=== PATIENT | female | born 1975 | race Caucasian/White ===

== ENCOUNTER 2024-06-23 04:28 | Inpatient (IN) | payer MEDICARE, MEDICAID ==
[~2024-06-23] VITALS: Ht 170.2 cm; Wt 57.7 kg
[2024-06-23] MEDS ORDERED: DiphenhydrAMINE HCl 50 MG/ML 1ML Vial IV ONE (04:45)
[2024-06-23] MEDS ORDERED: Ketorolac Tromethamine 30mg Vial IV ONE (04:45)
[2024-06-23] MEDS ORDERED: NS 1,000 ML IV SCH ×2 (04:45→06:00)
[2024-06-23] MEDS ORDERED: Prochlorperazine Edisylate 10 mg Vial IV ONE (04:45)
[2024-06-23 04:58] LABS: BASOPHILS ABSOLUTE AUTO 0.07 K/mm3 (0.00-0.23); BASOPHILS PERCENT AUTO 0 % (0-2); EOSINOPHILS ABSOLUTE AUTO 0.02 K/mm3 (0.00-0.68); EOSINOPHILS PERCENT AUTO 0 % (0-6); Hemoglobin 14.5 g/dL (11.5-16.0); IMMATURE GRAN ABSOLUTE AUTO 0.14 K/mm3 (0.00-0.10); IMMATURE GRAN PERCENT AUTO 1 % (0-1); LYMPHOCYTES ABSOLUTE AUTO 1.46 K/mm3 (0.84-5.20); LYMPHOCYTES PERCENT AUTO 5 % (21-46); MONOCYTES ABSOLUTE AUTO 2.08 K/mm3 (0.16-1.47); MONOCYTES PERCENT AUTO 8 % (4-13); Mean Corpuscular HGB 31.1 pg (26.0-34.0); Mean Corpuscular HGB Conc 34.5 g/dL (31.5-36.5); Mean Corpuscular Volume 90 fL (80-100); Mean Platelet Volume 9.4 fL (9.1-12.4); NEUTROPHILS ABSOLUTE AUTO 23.74 K/mm3 (1.96-9.15); NEUTROPHILS PERCENT AUTO 86 % (41-73); Platelet Count 252 K/mm3 (150-400); RDW Standard Deviation 46.3 fL (35.1-46.3); Red Blood Cell Count 4.66 M/mm3 (3.80-5.20); White Blood Cell Count 27.51 K/mm3 (4.00-11.30)
[2024-06-23 05:28] LABS: Magnesium, Blood 2.3 mg/dL (1.6-2.4)
[2024-06-23 05:35] LABS: Albumin, Blood 4.4 g/dL (3.4-5.0); Albumin/Globulin Ratio 1.2 (0.8-1.8); Bilirubin, Total 0.6 mg/dL (0.1-1.0); Bun/Creatinine Ratio 25.3 (12.0-20.0); Creatinine, Blood 0.59 mg/dL (0.40-1.00); Globulin, Blood 3.8 g/dL (2.2-4.0); Phosphorus, Blood 1.7 mg/dL (2.5-4.9); Potassium, Blood 2.8 mmol/L (3.5-5.5); Thyroid Stimulating Hormone 0.585 uIU/mL (0.360-4.800); Total Protein, Blood 8.2 g/dL (6.4-8.2)
[2024-06-23] MEDS ORDERED: Metoclopramide HCl 5MG / ML 2ML Vial IV PRN (06:05)
[2024-06-23] MEDS ORDERED: Ondansetron HCl 2 MG / ML 2ML Vial IV PRN (06:05)
[2024-06-23] MEDS ORDERED: FLU VACC TS2024-25(6MOS UP)/PF 45 MCG/0.5 ML SYRINGE IM SCH (06:05)
[2024-06-23] MEDS ORDERED: FentaNYL Citrate 50 MCG/ML 2 ML Injection IV PRN (06:05)
[2024-06-23] MEDS ORDERED: Sodium Phosphate 30 MM in Dextrose 5% 500 ML IV STA (06:09)
[2024-06-23 06:10] LABS: Source, Urine Clean Catch
[2024-06-23 06:19] LABS: Appearance, Urine Cloudy (Clear); Bilirubin, Urine Neg (Neg); Blood, Urine 2+ (Neg); Color, Urine Yellow (P-Yellow); Glucose Qualitative, Urine Neg (Neg); Ketones, Urine 1+ (Neg); Leukocyte Esterase, Urine 2+ (Neg); Nitrite, Urine Neg (Neg); Protein, Urine 3+ (Neg); Urobilinogen, Urine 1+ (Normal)
[2024-06-23 06:29] LABS: U Amphetamine Screen Not Detected; U Barbituate Screen Not Detected; U Benzodiazapine Screen Not Detected; U Buprenorphine Screen Not Detected; U Cannabinoids Screen DETECTED; U Cocaine Screen Not Detected; U Methadone Screen Not Detected; U Methamphetamine Screen DETECTED; U Opiates Screen DETECTED; U Oxycodone Screen Not Detected; U Phencyclidine Screen Not Detected
[2024-06-23] MEDS ORDERED: Potassium Chl 20MEQ/Water100ML 100 ML IV SCH (06:30)
[2024-06-23 06:32] LABS: Calcium Oxalate Crystals Mod /hpf; Red Blood Cells, Urine 0-2 /hpf (0-2); Squamous Epithelial Cells Few /hpf (Few)
[2024-06-23 06:33] LABS: Amorphous Heavy (0-Heavy); Bacteria Mod /hpf; Mucus Light (0-Heavy)
[2024-06-23] MEDS ORDERED: HYDROmorphone HCl/Pf 1MG SYR IV PRN ×2 (07:35→16:35)
[2024-06-23] MEDS ORDERED: Enoxaparin 40 MG/0.4 ML SYR SC SCH (09:00)
[2024-06-23] MEDS ORDERED: HYDROcodone 5-APAP 325 TAB PO PRN (10:35)
[2024-06-23] MEDS ORDERED: Insulin Human Lispro 100 Units/ML 3ML Syringe SC SCH (11:30)
[2024-06-23] MEDS ORDERED: Oxycodone HCl20 M1 PO (14:45)
[2024-06-23] MEDS ORDERED: Morphine Sulfat15 MG PO (14:46)
[2024-06-23] MEDS ORDERED: MORP30ER PO (14:47)
[2024-06-23] MEDS ORDERED: Carisoprodol350 MG PO (14:47)
[2024-06-23] MEDS ORDERED: MARINOL PO (14:49)
[2024-06-23 15:00] VITALS: BP 208/95
--- NOTE | 2024-06-23 15:39 | NUR ---
PHONE NOTE- MED REC COMPLETED OVER THE PHONE WITH PHARMACIST YULISA AT [facility] IN [facility]. PER YULISA, PATIENT IS RECIEVING ALL HER MEDICATOINS FROM A PAIN SPECIALIST DR RICHIE LORENZ IN [facility], PHONE [phone].
--- NOTE | 2024-06-23 15:54 | NUR ---
DR MICHELE NOTIFIED THAT PT, ON TELE CONVERTED FROM NSR TO BIGEMENY. THIS NURSE TO ADMINISTER THE POTASSIUM AND HOLD ON THE SODIUM PHOSPHATE UNTIL POTASSIUM HAS COMPLETED. DR MICHELE ALSO NOTIFIED THAT PT MED REC WAS COMPLETED AND DOSAGES WERE VERIFIED BY LUCILLE THAYER RN WITH PT'S HOME PHARMACY IN [facility]
[2024-06-23] MEDS ORDERED: Piperacillin/Tazobactam Sod 3.375 GM in NS 100 ML IV SCH (16:00)
[2024-06-23] MEDS ORDERED: NS 250 ML IV PRN (16:05)
--- NOTE | 2024-06-23 18:48 | NUR ---
SHIFT SUMMARY PT AXO, PLEASANT AND COOPERATIVE WITH CARE THOUGH PAINFUL, MEDICATED PER EMAR. HOME MED REC COMPLETED AND DR MICHELE AWARE AND SOME HOME MEDS REORDERED. AFTERNOON VS NOT IN CHART AT THIS TIME. LEATHA KIRKPATRICK NOTIFIED WHO WILL CHART THEM AT THIS TIME FOR THIS NURSE TO REVIEW. AT 1615 Sapient CALLED THIS NURSE AND NOTIFIED THAT THIS PATIENT CONVERTED TO BIGEMENY. DR MICHELE NOTIFIED. SODIUM PHOSPHATE TO STOP RUNNING AND RESUME THE POTASSIUM R/T PT ONLY HAVING ONE MEDIPORT LINE. THEN THIS NURSE NOTIFIED THAT PT CONVERTED TO "R ON T PVC'S" AND EKG ORDERED. CHARGE NURSE JEAN CARLOS DID EKG BUT PT HAD CONVERTED BACK. THIS HAPPENED AGAIN AND AGAIN WE WERE NOT ABLE TO CAPTURE IT ON EKG. PT MEDICATED FOR PAIN PER EMAR. PT CONTINUES TO COMPLAIN OF PAIN AND NAUSEA. BED IN LOW POSITION, CALL LIGHT WITHIN REACH.
[2024-06-23 19:02] VITALS: BP 208/95
[2024-06-23 19:29] VITALS: BP 173/96
[2024-06-23] MEDS ORDERED: Morphine Sulfate 30 MG TabCR PO SCH (21:00)
[2024-06-23 21:05] LABS: Bun/Creatinine Ratio 12.4 (12.0-20.0); Creatinine, Blood 0.48 mg/dL (0.40-1.00); Potassium, Blood 2.6 mmol/L (3.5-5.5)
[2024-06-23 21:08] LABS: Calcium, Blood 7.9 mg/dL (8.5-10.1)
--- NOTE | 2024-06-24 04:08 | NUR ---
SHIFT SUMMARY. PATIENT IS A&OX4 WITH SLIGHT CONFUSION. PATIENT UP AMBULATING IN THE AVITIA. PATIENT WILL SEEK OUT NURSE FOR NAUSEA AND PAIN MEDICATIONS AT TIMES. PATIENT REPORTS THAT SHE PASSED HER SCHEDULED MS CONTIN VIA BM AND HAS BEEN CRUSHING THEM AND TAKING THEM IN A CAPSULE-EDUCATED PATIENT THAT WE ARE NOT ABLE TO DO THAT BUT THAT WE COULD CRUSH IT AND PUT IN APPLESAUCE IF THAT HELPS. PATIENT REPORTS IMPROVEMENT IN HER PAIN CONTROL TONIGHT. PATIENT IS PLEASANT AND COOPERATIVE WITH CARE. PATINET C/O PAIN AND NAUSEA THIS SHIFT MEDICATED PER ORDERS-SEE EMAR. BED IS LOCKED IN THE LOWEST POSITION WITH CALL LIGHT IN REACH. CARE IS ONGOING.
[2024-06-24 05:00] VITALS: BP 134/98
[2024-06-24 06:38] LABS: BASOPHILS ABSOLUTE AUTO 0.03 K/mm3 (0.00-0.23); BASOPHILS PERCENT AUTO 0 % (0-2); EOSINOPHILS ABSOLUTE AUTO 0.06 K/mm3 (0.00-0.68); EOSINOPHILS PERCENT AUTO 1 % (0-6); Hematocrit 36.5 % (33.0-51.0); Hemoglobin 12.5 g/dL (11.5-16.0); IMMATURE GRAN ABSOLUTE AUTO 0.03 K/mm3 (0.00-0.10); IMMATURE GRAN PERCENT AUTO 0 % (0-1); LYMPHOCYTES ABSOLUTE AUTO 1.85 K/mm3 (0.84-5.20); LYMPHOCYTES PERCENT AUTO 19 % (21-46); MONOCYTES ABSOLUTE AUTO 0.95 K/mm3 (0.16-1.47); MONOCYTES PERCENT AUTO 10 % (4-13); Mean Corpuscular HGB 30.7 pg (26.0-34.0); Mean Corpuscular HGB Conc 34.2 g/dL (31.5-36.5); Mean Corpuscular Volume 90 fL (80-100); Mean Platelet Volume 9.2 fL (9.1-12.4); NEUTROPHILS ABSOLUTE AUTO 6.92 K/mm3 (1.96-9.15); NEUTROPHILS PERCENT AUTO 70 % (41-73); Platelet Count 213 K/mm3 (150-400); RDW Standard Deviation 46.1 fL (35.1-46.3); Red Blood Cell Count 4.07 M/mm3 (3.80-5.20); White Blood Cell Count 9.84 K/mm3 (4.00-11.30)
[2024-06-24 07:04] LABS: Albumin, Blood 3.8 g/dL (3.4-5.0); Albumin/Globulin Ratio 1.2 (0.8-1.8); Bilirubin, Total 1.1 mg/dL (0.1-1.0); Bun/Creatinine Ratio 10.5 (12.0-20.0); Calcium, Blood 7.9 mg/dL (8.5-10.1); Creatinine, Blood 0.57 mg/dL (0.40-1.00); Globulin, Blood 3.3 g/dL (2.2-4.0); Magnesium, Blood 1.7 mg/dL (1.6-2.4); Phosphorus, Blood 3.1 mg/dL (2.5-4.9); Potassium, Blood 2.5 mmol/L (3.5-5.5); Total Protein, Blood 7.1 g/dL (6.4-8.2)
[2024-06-24] MEDS ORDERED: Potassium Chl 20MEQ/Water100ML 100 ML IV SCH (07:35)
[2024-06-24 07:41] VITALS: BP 143/94
[2024-06-24] MEDS ORDERED: Potassium Chloride 20 MEQ TabCR PO SCH (08:00)
[2024-06-24 15:47] VITALS: BP 144/90
--- NOTE | 2024-06-24 18:38 | NUR ---
pt ambulating around the halls numerous times today, only asked for nausea meds once this am and states she is feeling better, no acute changes this shift. call light in reach.
[2024-06-24 19:21] VITALS: BP 162/92
--- NOTE | 2024-06-25 04:10 | NUR ---
SHIFT SUMMARY. PATIENT IS A&OX4 WITH CONFUSION AT TIMES. PATIENT IS INDEPENDENT IN ROOM AND WALKS INDEPENDENTLY THROUGH AVITIA. PATIENT C/O NAUSEA X3 THIS SHIFT MEDICATED X2-PATIENT REPORTS THAT REGLAN MAKES HER "JITTERY" AND SHE PREFERS NOT TO TAKE IT. PATIENT HAS MEDIPORT ACCESS. PATIENT IS PLEASANT AND COOPERATIVE WITH CARE. BED IS LOCKED IN THE LOWEST POSITION WITH CALL LIGHT IN REACH. CARE IS ONGOING.
[2024-06-25 04:16] VITALS: BP 145/77
[2024-06-25 07:36] VITALS: BP 164/79
[2024-06-25] MEDS ORDERED: Morphine Sulfate IR 15 MG Tab PO PRN (08:15)
--- NOTE | 2024-06-25 09:00 | NUR ---
pt laying in bed awake, a/ox4, cooperative with care, follows commands well, reports her long acting pain meds didn't help, asked dilaudid 2 hrs after administered, lungs are clear t/o, resp even and unlabored, no cough noted, hrr, bounding, no edema noted, ppp+2, cap refill <3 sec, vs stable, afebrile, mediport is accessed, infusing fluids tko, btx4, hypoactive, report regular bm's, voids without diff, skin c/w/d, maew, va, call light in reach.
[2024-06-25] MEDS ORDERED: HYDROmorphone HCl/Pf 1MG SYR IV PRN (11:00)
[2024-06-25 11:39] LABS: Bun/Creatinine Ratio 13.1 (12.0-20.0); Calcium, Blood 8.6 mg/dL (8.5-10.1); Creatinine, Blood 0.54 mg/dL (0.40-1.00); Potassium, Blood 2.8 mmol/L (3.5-5.5)
[2024-06-25] MEDS ORDERED: Potassium Chloride 20 MEQ TabCR PO ONE (13:30)
--- NOTE | 2024-06-25 16:22 | NUR ---
THIS RN TOOK OVER AT 1300. THE PATIENT IS ALERT AND ORIENTED AND COOPERATIVE WITH CARE. C/O ABD PAIN AND NAUSEA, MEDICATED PER EMAR. ON RA. IND IN THE ROOM AND WALKS IN THE HALLS. THE PATIENT'S MOTHER VISTED TODAY. THE PATIENT STATES SHE HAS HER HOME MEDICATIONS NOW AND IS PREPARED IN THAT WAS FOR DISCHARGE. WILL CONTINUE TO MONITOR.
[2024-06-25 16:36] VITALS: BP 163/90
[2024-06-25 20:17] VITALS: BP 159/82
[2024-06-25] MEDS ORDERED: Mirtazapine 15 MG Tab PO SCH (21:00)
[2024-06-26 03:05] VITALS: BP 181/92
--- NOTE | 2024-06-26 04:23 | NUR ---
SHIFT SUMMARY PT ALERT ORIENTED ABLE TO VERBALIZE NEEDS. GETS UP IN ROOM AD SENTHIL. SHE HAS A MEDIPORT TO HER LT CHEST THAT IS ASSESSED AND IS SL. C/O ABD PAIN MEDICATED WITH DILAUDID WITH GOOD PAIN RELIEF. NO C/O NAUSEA THIS SHIFT. SHE HAS A HX OF COLON CANCER AND HAS HAD MANY STOMACH SURGERYS. FS DONE AC AND HS WAS 116. REMAINS ON ZOSYN Q6HR. VSS ON RA SATTING 98%. REMAINS ON TELEMETRY AT [facility] AT A RATE OF 58. SHE C/O SHE WOKE UP AT 0300 AND IS HAVING A HARD TIME GOING BACK TO SLEEP. SHE HAS BEEN AMBULATING IN THE HALLWAY.
[2024-06-26 06:14] LABS: Hematocrit 32.1 % (33.0-51.0); Hemoglobin 11.2 g/dL (11.5-16.0); Mean Corpuscular HGB Conc 34.9 g/dL (31.5-36.5); Mean Corpuscular Volume 89 fL (80-100); Mean Platelet Volume 9.1 fL (9.1-12.4); Platelet Count 149 K/mm3 (150-400); RDW Coefficient Variation 13.2 % (11.7-14.2); RDW Standard Deviation 43.4 fL (35.1-46.3); Red Blood Cell Count 3.61 M/mm3 (3.80-5.20); White Blood Cell Count 5.72 K/mm3 (4.00-11.30)
[2024-06-26 06:40] LABS: Albumin, Blood 3.3 g/dL (3.4-5.0); Anion Gap 11 mmol/L (3-11); Blood Urea Nitrogen 10 mg/dL (8-24); Bun/Creatinine Ratio 18.2 (12.0-20.0); CO2, Blood 29 mmol/L (21-32); Calcium, Blood 8.6 mg/dL (8.5-10.1); Chloride, Blood 106 mmol/L (98-108); Creatinine, Blood 0.55 mg/dL (0.40-1.00); Glomerular Filtration Rate 111 (60-); Glucose, Blood 114 mg/dL (70-99); Magnesium, Blood 1.5 mg/dL (1.6-2.4); Phosphorus, Blood 2.6 mg/dL (2.5-4.9); Potassium, Blood 2.6 mmol/L (3.5-5.5); Sodium, Blood 143 mmol/L (136-145)
[2024-06-26 07:16] VITALS: BP 156/82
[2024-06-26] MEDS ORDERED: HYDROmorphone HCl 2 MG Tab PO PRN (07:55)
[2024-06-26] MEDS ORDERED: Potassium Chloride 20 MEQ TabCR PO ONE (07:55)
[2024-06-26] MEDS ORDERED: Magnesium Sulf 2 GM/Water 50ML 50 ML IV STA (08:00)
[2024-06-26] MEDS ORDERED: AMOCLA875 PO (13:42)
--- NOTE | 2024-06-26 13:59 | NUR ---
DISCHARGE NOTE PT DISCHARGED HOME AT 1350. PT PROVIDED W/ VERBAL AND WRITTEN INSTRUCTIONS AND REPORTED UNDERSTANDING. PT A&OX4, VSS, AMB IND, TOLERATING PO, VOIDING, AND PAIN MANAGED PER EMAR. BELONGINGS WERE RETURNED AND PT ESCOURTED HERSELF OUT.
== END 2024-06-26 13:54 | disposition home or self-care (01) | DRG 641 ==
LOC: ER 04:28 → ERHOLD 05:48 → MEDS 14:38
PROVIDERS: Emergency Medicine; Internal Medicine; ADMIT Internal Medicine
DX: E86.0 Dehydration (principal); K50.00 Crohn's disease of small intestine without complications; F11.20 Opioid dependence, uncomplicated; E87.20 Acidosis, unspecified; I16.0 Hypertensive urgency; R11.2 Nausea with vomiting, unspecified; E87.6 Hypokalemia; E83.39 Other disorders of phosphorus metabolism; G89.29 Other chronic pain; Z85.72 Personal history of non-Hodgkin lymphomas; Z90.49 Acquired absence of other specified parts of digestive tract; K52.9 Noninfective gastroenteritis and colitis, unspecified; Z98.890 Other specified postprocedural states; Z85.038 Personal history of other malignant neoplasm of large intestine
CPT/HCPCS: 36415; 74176; 80048; 80053; 80069; 81001; 82947; 83605; 83735; 84100; 84132; 84443; 85025; 85027; 87086; 93005; 93010; 96361; 96374; 96375; 99285-25; A9270; G0378; J0780; J1171; J1200; J1642; J1650; J1885; J2405; J2543; J2765; J3010; J3475; J3480; J7030; J7050; J7060